=== PATIENT | male | born 1945 | race Caucasian/White ===

== ENCOUNTER 2020-10-30 13:00 | Emergency (ER) | payer OTHER, SELFPAY ==
--- NOTE | ~2020-10-30 | XR_ITS ---
EXAMINATION: [id number] INDICATION: Lateral chest pain after fall TECHNIQUE: A frontal view of the chest and 3 views of the left ribs were obtained. COMPARISON: None FINDINGS: The lungs are free of acute opacities. There is no pleural effusion or pneumothorax. The he art size is normal. There appears to be a moderate-sized sliding hiatal hernia. Old right-sided rib f ractures are noted. No there appears to be a nondisplaced fracture at the lateral aspect of the left seventh rib. There is levoscoliosis of the lumbar spine and mild thoracic levocurvature. IMPRESSION: 1. Possible nondisplaced left seventh rib fracture. 2. No acute cardiopulmonary abnormality. Reviewed, dictated and finalized at location A. CATION SERVICES SPECIALIST
[2020-10-30 13:08] VITALS: BP 113/93; PULSE 77; RESP 20; TEMP 37.4; O2SAT 100
--- NOTE | 2020-10-30 13:12 | ED.GENADULT ---
HPI - General Adult General Chief complaint: Unspecified Stated complaint: fall with sore side Time Seen by Provider: 10/30/20 13:13 Source: patient and RN notes reviewed History of Present Illness HPI narrative: Patient is a 75-year-old male who presents the urgent care with complaints of left rib pain. Patient states that he fell while carrying something 7 days ago and fell onto his left side. Denies hitting his head or any loss of consciousness. Denies of any other injuries from the fall. Patient states that he is having pain with sneezing and deep breathing. States that he is also having pain with movement from side to side and reaching. Patient denies of any medications for pain. Denies chest pain or shortness of breath. Patient states that it feels the exact same when he fractured a rib 15 years ago . No other acute complaints. No acute distress noted. Patient aware of the plan of care. Some parts of this dictation were generated by voice recognition software and may contain typographical and/or grammatical inaccuracies. Related Data Home Medications Medication Instructions Recorded Confirmed trazodone 50 mg PO HS 10/30/20 10/30/20 Allergies Allergy/AdvReac Type Severity Reaction Status Date / Time No Known Allergies Allergy Verified 10/30/20 13:11 Review of Systems Review of Systems: Narrative: CONSTITUTIONAL: Denies fever, chills, or sweats. EYES: Denies visual changes, redness, or discharge. ENT: Denies rhinorrhea, congestion, sore throat, or otalgia. CARDIOVASCULAR: Denies chest pain, palpitations, or edema. RESPIRATORY: Denies cough or dyspnea. GASTROINTESTINAL: Denies abdominal pain, nausea, vomiting, or diarrhea. GENITOURINARY: Denies dysuria or hematuria. SKIN: Denies rash or itching. MUSCULOSKELETAL: Reports of left side/rib pain NEUROLOGIC: Denies headache, numbness, or weakness. All other systems reviewed are negative, except as documented in HPI. PMFSH Comments At the time of my signature, I reviewed and agree with the nursing past medical, surgical, social, and family history. There is no relevant family history pertinent to the patient complaint. Exam Narrative: Exam Narrative: GENERAL: This is a well-nourished, well-developed patient, in no apparent distress. HEAD: normocephalic, atraumatic. EYES: PERRL. Sclera clear/white. Vision is grossly intact. EARS: External ears normal NOSE: External nose normal with no obvious nasal discharge, nares without redness, no rhinorrhea. THROAT: Mucous membranes moist NECK: Neck supple CARDIOVASCULAR: Regular rate and rhythm without murmurs, gallops, or rubs. RESPIRATORY: Clear to auscultation. Breath sounds equal bilaterally. No wheezes, rales, or rhonchi. SKIN: warm, intact with no suspicious lesions or rash, good texture and turgor. NEURO: awake, alert, and oriented to person, place and time. There were no obvious focal neurologic abnormalities. EXTREMITIES: No clubbing, cyanosis, or edema. BACK: Mild lateral/anterior rib tenderness. Nontender without deformity or crepitance. Course Vital Signs Vital signs: Vital Signs Temperature 99.4 F 10/30/20 13:08 Pulse Rate 77 10/30/20 13:08 Respiratory Rate 20 10/30/20 13:08 Blood Pressure 113/93 H 10/30/20 13:08 Pulse Oximetry 100 10/30/20 13:08 Temperature 99.4 F 10/30/20 13:08 Pulse Rate 77 10/30/20 13:08 Respiratory Rate 20 10/30/20 13:08 Blood Pressure 113/93 H 10/30/20 13:08 Pulse Oximetry 100 10/30/20 13:08 Reviewed?patient is informed that they may have pre-hypertension or hypertension based on a blood pressure reading in the department. I recommend the patient call the primary care provider listed on their discharge instructions or a physician of their choice this week to arrange follow-up for further evaluation of possible pre-hypertension or hypertension. Medical Decision Making MDM Narrative Medical decision making narrative: Reviewed x-ray results with
== END 2020-10-30 13:43 | disposition home or self-care (01) ==
PROVIDERS: Emergency Provider Nurse Practitioner Family; PCP General Practice
DX: R07.81 Pleurodynia (principal); R03.0 Elevated blood-pressure reading, without diagnosis of hypertension; R93.7 Abnormal findings on diagnostic imaging of other parts of musculoskeletal system
CPT/HCPCS: 71101; 99213; G0463

== ENCOUNTER 2021-05-29 12:50 | Emergency (ER) | payer OTHER, SELFPAY ==
--- NOTE | 2021-05-29 12:53 | ED.MALEGU ---
HPI - Male Genitourinary General Chief complaint: Urogenital-Male Stated complaint: Poss uti Time Seen by Provider: 05/29/21 12:53 Source: patient and RN notes reviewed History of Present Illness HPI Narrative: Patient is a 75-year-old male who presents the urgent care with complaints of a possible UTI. Patient states that he has acute on chronic low back pain and wants to make sure it is not related to a urinary tract infection. Patient states that he had this acute on chronic back pain in the past and he had a UTI. Patient denies of any urinary symptoms with the exception of his chronic urinary frequency. Denies of hematuria, dysuria, urgency, incontinence, abdominal pain, nausea, vomiting, fever. No other acute complaints. Denies of any new recent falls or trauma to the back. No acute distress noted. Patient aware of the plan of care. Some parts of this dictation were generated by voice recognition software and may contain typographical and/or grammatical inaccuracies. Related Data Home Medications Medication Instructions Recorded Confirmed No Home Medications 05/29/21 05/29/21 Allergies Allergy/AdvReac Type Severity Reaction Status Date / Time No Known Allergies Allergy Verified 05/29/21 13:06 Review of Systems Review of Systems: Narrative: CONSTITUTIONAL: Denies fever, chills, or sweats. EYES: Denies visual changes, redness, or discharge. ENT: Denies rhinorrhea, congestion, sore throat, or otalgia. CARDIOVASCULAR: Denies chest pain, palpitations, or edema. RESPIRATORY: Denies cough or dyspnea. GASTROINTESTINAL: Denies abdominal pain, nausea, vomiting, or diarrhea. GENITOURINARY: Denies dysuria or hematuria. SKIN: Denies rash or itching. MUSCULOSKELETAL: Reports of increased low back pain NEUROLOGIC: Denies headache, numbness, or weakness. All other systems reviewed are negative, except as documented in HPI. PMFSH Comments At the time of my signature, I reviewed and agree with the nursing past medical, surgical, social, and family history. There is no relevant family history pertinent to the patient complaint. Exam Narrative: Exam Narrative: GENERAL: This is a well-nourished, well-developed patient, in no apparent distress. HEAD: normocephalic, atraumatic. EYES: PERRL. Sclera clear/white. Vision is grossly intact. EARS: External ears normal NOSE: External nose normal with no obvious nasal discharge, nares without redness, no rhinorrhea. THROAT: Mucous membranes moist NECK: Neck supple CARDIOVASCULAR: Regular rate and rhythm RESPIRATORY: Mild inspiratory wheeze, cleared with cough GASTROINTESTINAL: Abdomen soft, non-tender, nondistended. Bowel sounds are active. No guarding. SKIN: warm, intact with no suspicious lesions or rash, good texture and turgor. NEURO: awake, alert, and oriented to person, place and time. There were no obvious focal neurologic abnormalities. EXTREMITIES: No clubbing, cyanosis, or edema. BACK: Diffuse lumbar tenderness Course Vital Signs Vital signs: Vital Signs Temperature 98.6 F 05/29/21 12:58 Pulse Rate 85 05/29/21 12:58 Respiratory Rate 16 05/29/21 12:58 Blood Pressure 124/92 H 05/29/21 12:58 Pulse Oximetry 99 05/29/21 12:58 Temperature 98.6 F 05/29/21 13:06 Pulse Rate 85 05/29/21 13:06 Respiratory Rate 16 05/29/21 13:06 Blood Pressure 124/92 H 05/29/21 13:06 Pulse Oximetry 99 05/29/21 13:06 Reviewed-patient is informed that they may have pre-hypertension or hypertension based on a blood pressure reading in the department. I recommend the patient call the primary care provider listed on their discharge instructions or a physician of their choice this week to arrange follow-up for further evaluation of possible pre-hypertension or hypertension. MDM - Male Genitourinary MDM Narrative Medical decision making narrative: Reviewed lab results with the patient. He is aware that urine analysis is not indicative of a urinary tract infection.
[2021-05-29 12:58] VITALS: BP 124/92; PULSE 85; RESP 16; TEMP 37; O2SAT 99
[2021-05-29 13:06] VITALS: BP 124/92; PULSE 85; RESP 16; TEMP 37; O2SAT 99
== END 2021-05-29 13:21 | disposition home or self-care (01) ==
PROVIDERS: Emergency Provider Nurse Practitioner Family
DX: G89.29 Other chronic pain (principal); M54.5 Low back pain
CPT/HCPCS: 81003; 99212; G0463

== ENCOUNTER 2025-01-11 14:10 | Emergency (ER) | payer OTHER, SELFPAY ==
[2025-01-11 14:27] VITALS: BP 153/76; PULSE 74; RESP 20; TEMP 36.7; O2SAT 99
--- NOTE | 2025-01-11 14:29 | ED_ITS ---
HPI - General Adult General Chief complaint: Unspecified Stated complaint: Blood Pressure Source: patient Mode of arrival: ambulatory Limitations: no limitations History of Present Illness HPI narrative: 79-year-old male presented for blood pressure check. He says he is scheduled for dental implants in a month, however the dental office noted elevated BP readings 2 weeks ago at his visit. He states they requested the blood pressure reading. Denies chest pain, Palpitations, shortness of breath, headache, dizziness, nausea. Says his pcp left the practice. Related Data Home Medications ?Medication ?Instructions ?Recorded ?Confirmed ?Last Taken ?Type Sleep 01/11/25 Unknown History Allergies Allergy/AdvReac Type Severity Reaction Status Date / Time No Known Allergies Allergy Verified 01/11/25 14:16 Review of Systems Review of Systems: CONSTITUTIONAL: Denies body aches, fever, chills, or sweats. EYES: Denies visual changes, redness, or discharge. ENT: Denies rhinorrhea, congestion, sore throat, or otalgia. CARDIOVASCULAR: Denies chest pain, palpitations, or edema. RESPIRATORY: Denies cough or dyspnea. GASTROINTESTINAL: Denies abdominal pain, nausea, vomiting, or diarrhea. GENITOURINARY: Denies dysuria or hematuria. SKIN: Denies rash, itching, or wounds. MUSCULOSKELETAL: Denies back pain, joint pain, or myalgia. NEUROLOGIC: Denies headache, numbness, tingling, or weakness. PSYCH: Denies depression or anxiety. All systems reviewed & are unremarkable except as noted in HPI and below PMFSH Comments At time of signature, I have reviewed and agree with nursing past medical, surgical, social and family history unless otherwise noted. Please see nursing chart for further information. There is no relevant family history pertinent to the presenting complaint Exam Narrative: GENERAL: Well-appearing EYES: EOMI. No redness or drainage. Conjunctivae normal. ENT: Mucous membranes pink and moist. CHEST: No respiratory distress. Clear to auscultation. HEART: Regular rate and rhythm. No murmur appreciated. Normal peripheral pulses. SKIN: Warm, dry, no rash. Capillary refill normal. Normal skin turgor. NEURO: No focal deficits. Alert and oriented x3. Gait steady. PSYCH: Normal affect. Course Course Emergency Course: Patient is aware of diagnosis, understands and agrees to treatment plan. Anticipatory guidance given. Patient agrees to follow-up as directed and is aware of reasons to seek care at the emergency department. Portions of this record may have been created with voice recognition software Level of Care: Express Care Visit Vital Signs Vital signs: Vital Signs Temperature 98.0 F 01/11/25 14:27 Pulse Rate 74 01/11/25 14:27 Respiratory Rate 20 01/11/25 14:27 Blood Pressure 153/76 H 01/11/25 14:27 Pulse Oximetry 99 01/11/25 14:27 Oxygen Delivery Room Air 01/11/25 14:27 Temperature 98.0 F 01/11/25 14:27 Pulse Rate 74 01/11/25 14:27 Respiratory Rate 20 01/11/25 14:27 Blood Pressure 153/76 H 01/11/25 14:27 Pulse Oximetry 99 01/11/25 14:27 Oxygen Delivery Room Air 01/11/25 14:27 Medical Decision Making MDM Narrative Medical decision making narrative: Discussed physical exam findings and BP reading. Advised supportive measures and signs/symptoms to go to the ER. Pt is appropriate for outpt treatment and f/u. Differential Diagnosis Differential Diagnosis: hypertension, elevated bp reading, cardiac arrhythmia Vital Signs Vital Signs: Vital Signs Temperature 98.0 F 01/11/25 14:27 Pulse Rate 74 01/11/25 14:27 Respiratory Rate 20 01/11/25 14:27 Blood Pressure 153/76 H 01/11/25 14:27 Pulse Oximetry 99 01/11/25 14:27 Oxygen Delivery Room Air 01/11/25 14:27 Temperature 98.0 F 01/11/25 14:27 Pulse Rate 74 01/11/25 14:27 Respiratory Rate 20 01/11/25 14:27 Blood Pressure 153/76 H 01/11/25 14:27 Pulse Oximetry 99 01/11/25 14:27 Oxygen Delivery Room Air 01/11/25 14:27 reviewed Discharge Plan Discharge Clinical Impression: Blood pressure check Patient Disposition: Home, Self-Care Condition: Stable Instructions: Antibiotic Form, Hypertension (ED) Additional Instructions: Your blood pressure reading was elevated (above 120/80) please follow-up with your primary care provider for further evaluation and management. If you develop worsening Blood Pressure symptoms, (headache, vision changes, dizziness, vomiting, chest pain, etc) go to the ER. Call 911. Recommend checking your blood pressure at home at the same time daily Bring the readings with you to your PCP and the dental office. Avoid salty foods, caffeine or energy drinks Follow up with your primary care provider in 1 week Go to the ER for worsening symptoms or concerns Patient Language: German Prescriptions: No Action Sleep Follow-up/Referrals: PHYSICIAN,SCOW DERRICK OPERATOR [Primary Care Provider] - Time of Disposition: 14:45
--- OUTSIDE RECORDS SUMMARY | 2025-01-11 15:30 | XMS_ITS | Continuity of Care Document ---
Author Name [facility] Organization [facility] Care Team Providers Care Machine Pan Greaser Name Role Phone [facility] Unavailable Unavailable Problems Combined list of problems from Department of Defense and Veterans Affairs facilities. It does not include entries that were removed or entered in error. Problem Status Onset Date Problem Type Date of Resolution Comments Source CARDIAC DYSRHYTHMIAS NEC Inactive 03/23/19 95 Condition 12/31/2021 [facility] ([facility]) INHIBITED SEX EXCITEMENT Inactive 03/23/19 95 Condition 12/31/2021 [facility] ([facility]) POSTSURGICAL STATES NEC Inactive 03/23/19 95 Condition 12/31/2021 [facility] ([facility]) UNILAT INGUINAL HERNIA Inactive 03/23/19 95 Condition 12/31/2021 [facility] ([facility]) Chronic anemia Active Condition [facility] Exposure to potentially hazardous substance ([facility] [id number] ) Active Condition Feb 23, 2024 Entered By: YAZAN VAZQUEZ Comment: Entered automatically through JALIL Problem List documentation program [facility]ULAH GOMEZ [facility] Insomnia Active Condition [facility] Diagnosis: ICD-10-CM 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 Medication Details Route Status Patient Instructions Prescription Expires Prescription Number Last Dispense Date Ordering Provider Order Date Order Qty Source BACITRACIN 500UNT/GM OINT,TOP APPLY SPARINGL Y TO AFFECTED AREA(S) TWICE DAILY FOR BACTERIA L INFECTIO N (EXTERNA L USE ONLY) TOPICA L DISCONT INUED BY JEANETH Ceballos 12/15/2024 [id number] SENTHIL LOONEY 2023 90 [facility] TRAZODONE HCL 100MG TAB TAKE ONE-HALF TABLET BY MOUTH AT BEDTIME ORAL DISCONT INUED 01/18/2024 [id number] SENTHIL LOONEY 2022 45 [facility] TRAZODONE HCL 100MG TAB TAKE ONE-HALF TABLET BY MOUTH AT BEDTIME ORAL 12/15/2024 [id number] SENTHIL LOONEY 2023 45 [facility] Results Combined list of recent chemistry, hematology and other laboratory results from [facility] and [facility], ranging from 15 months to all on record, depending upon the facility. Order Name Results Value Reference Range Date Interpretation Specimen Comments Source OCCULT BLOOD FIT X1 SCREEN HEMOGLOBIN.G ASTROINTESTI NAL.LOWER [PRESENCE] IN STOOL BY IMMUNOASSAY INVALID 12/15 Specimen Type: FECES Comment: Collection date could not be determined. Sample integrity cannot be ensured. Please recollect specimen and resubmit for testing. Ordering Provider: ELIO LOONEY DD Report Released Date/Time: Dec 15, 2023 01:54 PM Reporting Lab: [facility] [address] [id number] Performing Lab: [facility] [address] [place] [id number] [facility] Vital Signs Combined list of inpatient and outpatient Vital Signs from [facility], ranging from 12 months to all on record, depending upon the facility. Vital Sign Value Date Comments Source SYSTOLIC BLOOD PRESSURE 168 06/14/2024 13:34:17 [facility] DIASTOLIC BLOOD PRESSURE 81 06/14/2024 13:34:17 [facility] PULSE OXIMETRY 95 06/14/2024 13:34:17 [facility] WEIGHT 166 06/14/2024 13:34:17 [facility] BMI 24 kg/m2 06/14/2024 13:34:17 [facility] PAIN 0 06/14/2024 13:34:17 . [facility] TEMPERATURE 97.2 06/14/2024 13:34:17 [facility] PULSE 72 06/14/2024 13:34:17 [facility] RESPIRATION 18 06/14/2024 13:34:17 [facility] Encounters Combined list of: 1) Encounters from Department of Veterans Affairs facilities going backup to the last 18 months, not all VA inpatient encounters are included; 2) Encounters from the Department of Defense facilities going backup to 280 months. Location Location Details Encounter Type Encounter Number Reason For Visit Attending Provider ADM Date DC Date Status Disposition Source [facility] Outpatient Encounter [id number] ANUSHA DENNEY 10/20 [facility] Outpatient Encounter [id number] LOONEY,T ODD 10/20 [facility] OFFICE O/P EST LOW 20 MIN [id number] Diagnos is: ICD-10- CM G47.00 Insomni a, unspeci fied LOONEY,T ODD 12/15 [facility] Outpatient Encounter [id number] YOSEF BARNES 12/17 [facility] Outpatient Encounter [id number] 01/03 [facility] Outpatient Encounter [id number] 01/03 [facility] FLU IMM NO ADMIN DOC MONICA [id number] Diagnos is: ICD-10- CM Z23 Encount er for immuniz ation EDISON WELDON RA 03/03 [facility] OFFICE O/P EST MOD 30 MIN [id number] Diagnos is: ICD-10- CM G47.00 Insomni a, unspeci fichristelle ELICIA YUMIKO Stevie 06/14 [facility] Outpatient Encounter [id number] 06/20 [facility] OFF/OP CNSLTJ NEW/EST MOD 40 [id number] Diagnos is: ICD-10- CM M72.2 Plantar fascial fibroma toskat GUILLERMINA WAGNER 08/17 [facility] Outpatient Encounter [id number] GUILLERMINA WAGNER 10/26 [facility] Social History Combined list of available smoking, tobacco, and other social history from Department of Defense and Veterans Affairs facilities. Social History Type Response Date Comment Sour e Tobacco smoking status NHIS VA-TOBACCO FORMER USER 12/15/2023 [facility] of [facility] 12/15/2023 [facility] History of tobacco use OR-TOBACCO FORMER USER 12/31/2021 [facility] History of tobacco use LIFETIME NON-USER OF TOBACCO 01/07/2020 [facility] Plan of Care List of future care activities from Department of [facility] facilities. Additional future care activities may be listed in the Assessment and Plan section. Date/Time Care Activity Care Activity Detail Facili ty 01/17/2025 AMBULATORY - MEDICINE AMBULATORY - MEDICI NE [facility]
--- OUTSIDE RECORDS SUMMARY | 2025-01-11 15:34 | XMS_ITS | Continuity of Care Document ---
Author Name [facility] Organization [facility] Care Team Providers Care Debt Recovery Officer Name Role Phone [facility] Unavailable Unavailable Problems Combined list of problems [...] [facility] ([facility]) Chronic anemia Active Condition [facility] Exposure to potentially hazardous substance ([facility] [id number] ) Active Condition Feb 23, 2024 Entered By: YAZAN VAZQUEZ Comment: Entered automatically through JALIL Problem List documentation program BEULAH GOMEZ [facility] Insomnia Active Condition [facility] Diagnosis: ICD-10-CM 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 Diagnosis [facility] Diagnosis: ICD-10-CM G47.00 Insomnia, unspecified Active Diagnosis [facility] Diagnosis: ICD-10-CM Z23 Encounter for immunization Active Diagnosis [facility] Medications Combined list of outpatient medications from Department of Defense and [facility] Affairs facilities.Medications provided include 1) outpatient medications [...] L DISCONT INUED BY JEANETH Ceballos 12/15/2024 [id number] SENTHIL LOONEY 2023 90 [facility] TRAZODONE HCL 100MG TAB TAKE ONE-HALF TABLET BY MOUTH AT BEDTIME ORAL DISCONT INUED 01/18/2024 [id number] SENTHIL LOONEY 2022 45 [facility] TRAZODONE HCL 100MG TAB TAKE ONE-HALF TABLET BY MOUTH AT BEDTIME ORAL 12/15/2024 [id number] SENTHIL LOONEY 2023 45 [facility] Results Combined list of recent chemistry, hematology and other laboratory results from [facility] and [facility], ranging from 15 months to all on [...] Dec 15, 2023 01:54 PM Reporting Lab: [facility] [address] [place] [place] [id number] Performing Lab: [facility] [address] [place] [id number] [facility] Vital Signs Combined list of inpatient and outpatient Vital Signs from [facility], ranging from 12 months to all on record, depending upon the facility. Vital Sign Value Date Comments Source SYSTOLIC BLOOD PRESSURE 168 06/14/2024 13:34:17 [facility] DIASTOLIC BLOOD PRESSURE 81 06/14/2024 13:34:17 [facility] PULSE OXIMETRY 95 06/14/2024 13:34:[address] [facility] WEIGHT 166 06/14/2024 13:34:17 [facility] BMI 24 kg/m2 06/14/2024 13:34:17 [facility] PAIN 0 06/14/2024 13:34:17 . [facility] TEMPERATURE 97.2 06/14/2024 13:34:17 [facility] PULSE 72 06/14/2024 13:34:17 [facility] RESPIRATION 18 06/14/2024 13:34:17 [facility] Encounters Combined list of: 1) Encounters from Department of Veterans Affairs facilities going backup to the last 18 months, not all VA inpatient encounters are included; 2) Encounters from the Department of Defense facilities going backup to 280 months. Location Location Details Encounter Type Encounter Number Reason For Visit Attending Provider ADM Date DC Date Status Disposition Source [facility] Outpatient Encounter [id number] ANUSHA DENNEY 10/20 [facility] Outpatient Encounter [id number] LOONEY,T ODD 10/20 [facility] OFFICE O/P EST LOW 20 MIN [id number] Diagnos is: ICD-10- CM G47.00 Insomni a, unspeci fied LOONEY,T ODD 12/15 [facility] Outpatient Encounter [id number] YOSEF BARNES 12/17 [facility] Outpatient Encounter [id number] 01/03 [facility] Outpatient Encounter [id number] 01/03 [facility] FLU IMM NO ADMIN DOC MONICA [id number] Diagnos is: ICD-10- CM Z23 Encount er for immuniz ation EDISON WELDON RA 03/03 [facility] OFFICE O/P EST MOD 30 MIN [id number] Diagnos is: ICD-10- CM G47.00 Insomni a, unspeci fichristelle ELICIA YUMIKO Stevie 06/14 [facility] Outpatient Encounter [id number] 06/20 [facility] OFF/OP CNSLTJ NEW/EST MOD 40 [id number] Diagnos is: ICD-10- CM M72.2 Plantar fascial fibroma toskat GUILLERMINA WAGNER 08/17 [facility] Outpatient Encounter [id number] GUILLERMINA WAGNER 10/26 [facility] Social History Combined list of available smoking, tobacco, and other social history from Department of Defense and Veterans Affairs facilities. Social History Type Response Date Comment Sour e Tobacco smoking status NHIS [facility] FORMER USER 12/15/2023 [facility] of [facility] OR MORE [facility]/15/2023 [facility] History of tobacco use [facility]-TOBACCO FORMER USER 12/31/2021 [facility] History of tobacco use LIFETIME NON-USER OF TOBACCO 01/07/2020 [facility] Plan of Care List of future care activities from Department of [facility] Affairs facilities. Additional future care activities may be listed in the Assessment and Plan section. Date/Time Care Activity Care Activity Detail Facili ty 01/17/2025 AMBULATORY - MEDICINE AMBULATORY - MEDICI NE [facility]
== END 2025-01-11 14:49 | disposition home or self-care (01) ==
PROVIDERS: Emergency Provider Nurse Practitioner Family
DX: R03.0 Elevated blood-pressure reading, without diagnosis of hypertension (principal)
CPT/HCPCS: 99211; G0463